=== PATIENT | male | born 1995 | race Caucasian/White ===

== ENCOUNTER 2025-01-02 01:08 | Emergency (ER) | payer OTHER, SELFPAY ==
[2025-01-02 01:09] VITALS: BP 151/69; PULSE 93; RESP 16; TEMP 36.8; O2SAT 98; BMI 22.5
--- NOTE | 2025-01-02 01:19 | EKG12_ITS ---
Test Reason : DYSRHYTHMIA Blood Pressure : */* mmHG Vent. Rate : 91 BPM Atrial Rate : 91 BPM P-R Int : 188 ms QRS Dur : 80 ms QT Int : 336 ms P-R-T Axes : 65 48 59 degrees QTcB Int : 413 ms Normal sinus rhythm Normal ECG Confirmed by Duglas Barber ([id number]), copy editor SHANELLE MOYER ([id number]) on 01/07/2025 1:02:13 PM Referred By: SHRUTHI Confirmed By: Duglas Barber
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
[2025-01-02] MEDS: fentaNYL 100 MCG/2 ML Ampul 50 MCG IV (01:40)
[2025-01-02] MEDS: Lidocaine 1% /Epi 1:100 (20ml) 20 ML Vial INFILT (01:40)
[2025-01-02] MEDS: 0.9% Normal Saline (1000mL) 1,000 ML 999 ML IV (01:40)
[2025-01-02] MEDS: Diphth,Pertuss(Acell),Tet Vac 0.5 ML Vial IM (01:40)
[2025-01-02] MEDS: Ondansetron 4 MG/2 ML Vial IV (01:41)
[2025-01-02 01:56] LABS: Bacteria 0 SEEN /hpf (None Seen); Mucous, Urine 0 SEEN /hpf (<or=2+); Squamous Epithelial Cells - UA 0 SEEN /hpf (0-5)
[2025-01-02 01:58] LABS: Absolute Lymphocyte Count 1.69 X10^3/uL (0.83-4.51); Absolute Neutrophil Count 6.4 X10^3/uL (2.0-7.7); Basophil# 0.04 X10^3/uL; Basophil% 0.5 % (0-1); Eosinophil# 0.11 X10^3/uL; Eosinophils% 1.3 % (0-5); Hematocrit 38.9 % (40-54); Hemoglobin 14.1 g/dL (13.0-16.5); Lymphocyte # 1.69 X10^3/ul (0.83-4.51); Lymphocyte % 19.4 % (19-41); Mean Corp Hgb Conc 36.2 g/dL (32-36); Mean Corpuscular Hgb 31.3 pg (27.0-32.0); Mean Corpuscular Volume 86.4 fL (80-94); Mean Platelet Vol. 10.4 fl (6.2-12.0); Monocyte# 0.46 X10^3/uL; Monocyte% 5.3 % (0-10); NRBC Flagged by Analyzer 0 % (0-5); Neutrophil # 6.39 X10^3/uL (2.7-7.7); Neutrophil % 73.3 % (47-70); Platelet Count 285 K/mm3 (150-450); RBC Distribution Width CV 12.2 % (11.6-14.6); RBC Distribution Width SD 38.6 fl (35.1-43.9); White Blood Count 8.7 K/mm3 (4.4-11.0)
[2025-01-02 01:59] LABS: Color, Urine Yellow (Yellow); Glucose, Dipstick Normal (Normal); Ketone-Dipstick Negative (Negative); Leukocyte Esterase-Dipstick Negative /ul (Negative); Nitrite-Dipstick Negative (Negative); Occult Blood-Urine Negative /ul (Negative); Protein-Dipstick 15 mg/dl (Negative); Urine Bilirubin Dipstick Negative (Negative); Urine Clarity Clear (Clear); Urine Urobilinogen Normal (Normal)
[2025-01-02 02:09] VITALS: BP 117/72; PULSE 118; RESP 18; O2SAT 98
[2025-01-02 02:17] LABS: ALB/GLOB Ratio 1.8 RATIO (0.9-2.4); AST(SGOT) 22 U/L (<=37); Alanine Aminotransfer ALT/SGPT 13 U/L (<=46); Albumin, Serum 4.4 g/dL (3.5-5.0); Alkaline Phosphatase 83 U/L (40-129); Anion Gap 15 (5-15); BUN 15 mg/dL (4-19); BUN/Creat Ratio 14.9 RATIO (10-20); Calcium,Total 8.9 mg/dL (7.6-11.0); Carbon Dioxide 20.9 mmol/L (21.0-32.0); Chloride 101 mmol/L (98-108); Creatinine, Serum 1.01 mg/dL (0.70-1.20); EST Glomerular Filtration Rate 105 (>60); Estimated Creatinine Clearance 123.54 ml/min (50-250); Globulin 2.5 g/dL (2.2-4.2); Glucose 94 mg/dL (70-99); Lipase 18 U/L (13-75); Potassium 3.6 mmol/L (3.3-5.1); Protein, Total 6.9 g/dL (5.9-8.4); Sodium Level 137 mmol/L (133-145); Total Bilirubin 0.29 mg/dL (0.00-1.30)
[2025-01-02 02:22] LABS: Red Blood Cells-Urine 0-5 SEEN /hpf (0-5); White Blood Cells 0-5 SEEN /hpf (0-5)
[2025-01-02 03:03] LABS: Troponin T High Sensitivity < 6 ng/L (<=22)
[2025-01-02 03:08] VITALS: BP 103/58; PULSE 87; RESP 14; TEMP 36.7; O2SAT 99
== END 2025-01-02 03:09 | disposition home or self-care (01) ==
PROVIDERS: Emergency Provider Surgery; Visit Provider Surgery
DX: S01.01XA Laceration without foreign body of scalp, initial encounter (principal); V89.2XXA Person injured in unspecified motor-vehicle accident, traffic, initial encounter; F10.129 Alcohol abuse with intoxication, unspecified; F17.290 Nicotine dependence, other tobacco product, uncomplicated; F17.210 Nicotine dependence, cigarettes, uncomplicated; Z23 Encounter for immunization
CPT/HCPCS: 12002; 70450; 70486; 71260; 72125; 74177; 80053; 81001; 82077; 83690; 84484; 85025; 90471; 90715; 93005; 96361; 96374; 96375; 99285; Q9967; J2405